=== PATIENT | male | born 1965 | race Caucasian/White ===

== ENCOUNTER → 2016-12-09 | Outpatient (CLI) | payer MEDICAID ==
[~2016-12-09] MED LIST: BACTRIM DS1 TAB PO; BAL B-501 EACH PO; BUPROPION HCL75 MG PO; CYMBALTA30 MG PO; CYMBALTA60 MG PO; FLOMAX0.4 MG PO; NEURONTIN300 MG PO; PERCOCET 5-3251 EACH PO; THERA-VITE W/ B1 TAB PO; VALIUM10 MG PO; VITAMIN D-32000 UNI1 PO; ZYPREXA5 MG PO
== END | disposition disaster alternative care site (69) ==
LOC: GRAD 15:12
DX: M54.12 Radiculopathy, cervical region (principal); M50.121 Cervical disc disorder at C4-C5 level with radiculopathy; M50.122 Cervical disc disorder at C5-C6 level with radiculopathy; M50.123 Cervical disc disorder at C6-C7 level with radiculopathy; M48.02 Spinal stenosis, cervical region; M40.40 Postural lordosis, site unspecified; M54.2 Cervicalgia

== ENCOUNTER 2016-12-22 18:56 | Emergency (ER) | payer MEDICAID ==
--- NOTE | ~2016-12-22 | ER ---
PATIENT'S NAME: DELLA JAEGER [facility] AGE: 51 Y [address] ROOM: [place] [address] LOCATION: [facility] ADMIT DATE: 12/22/2016 ER/Outpatient Report DISCHARGE DATE: 12/22/2016 FAMILY PHYSICIAN: PHYSICIAN, NO ATTENDING PHYSICIAN: Pete Kingsley Time of Arrival: 1856 hours. Time of Evaluation: 1905 hours. CHIEF COMPLAINT: Chronic pain. HISTORY OF PRESENT ILLNESS: This is a 51-year-old male, who presents to the ER, who states he has chronic pain. He states he is seeing a pain specialist in [place], but he will be out the country for the next couple of weeks. He has been seen a neurosurgeon, and he is going to have some spinal fusions done in the next couple of weeks. He states that they have been waiting him down on his medications for pain prior to his surgery. He states that he ran out of his medications yesterday. He denies any recent illness. No fever or chills. He states he has this chronic pain in his left arm, neck, and leg. He denies any new injury to the back, arm, or neck. ALLERGIES: NO KNOWN ALLERGIES. MEDICATIONS: Please see medication list in nurse's notes. PAST MEDICAL HISTORY: 1. Hepatitis C. 2. Depression. 3. Bipolar. 4. Chronic pain. PAST SURGICAL HISTORY: None. SOCIAL HISTORY: He smokes cigarettes. He has a drug abuse history 6 years ago. REVIEW OF SYSTEMS: A 10-point review of system was completed and was negative with the exception of those discussed in the HPI. PATIENT'S NAME: DELLA JAEGER [facility] AGE: 51 Y [address] ROOM: [place], [place] [address] LOCATION: [facility] ADMIT DATE: 12/22/2016 ER/Outpatient Report DISCHARGE DATE: 12/22/2016 FAMILY PHYSICIAN: PHYSICIAN, NO ATTENDING PHYSICIAN: Pete Kingsley PHYSICAL EXAMINATION: VITAL SIGNS: Height 5 feet 11 inches stated, weight 114.3 kg taken, blood pressure is 156/101, pulse 107, respirations 16, temperature 98.3 degrees tympanically, saturations 96% on room air. GENERAL: An alert, calm, well-developed male, in no acute distress. HEENT: Head: Normocephalic. He does display moist mucous membranes. LUNGS: Clear to auscultation bilaterally. No wheezes or crackles. HEART: Tachycardic, normal rhythm. EXTREMITIES: No clubbing or cyanosis. He does seem to have full range of motion of all of his limbs. NEUROLOGIC: Cranial nerves 2 through 12 grossly intact. Gait is steady without assistance. He does have good sensation bilaterally upper and lower extremities. LABORATORY DATA AND X-RAYS: None were done. IMPRESSION: Chronic pain, needing medication refill. ASSESSMENT AND PLAN: I did review the patient's medication list. The patient states that he would just like to get his oxycodone refills. I did write him for oxycodone one p.o. b.i.d., #16, with no refills. I advised them that he needs to monitor his symptoms, and he should follow up with his primary care physician for followup care. The patient understands and agrees with care. URIEL DEL CASTILLO PA-C FOR MD SILVIA STEELE/erik /[id number] d: 12/23/16 0446 t: 12/29/16 0922, OUTPATIENT REPORT
[2017-02-24] MEDS ORDERED: BUPROPION HCL75 MG PO (16:55)
[2017-02-24] MEDS ORDERED: ZYPREXA5 MG PO (16:55)
[2017-02-24] MEDS ORDERED: FLOMAX0.4 MG PO (16:56)
[2017-02-24] MEDS ORDERED: CYMBALTA30 MG PO (16:56)
[2017-02-24] MEDS ORDERED: NEURONTIN300 MG PO (16:56)
[2017-02-24] MEDS ORDERED: CYMBALTA60 MG PO (16:56)
[2017-02-24] MEDS ORDERED: PERCOCET 5-3251 EACH PO (16:57)
[2017-02-24] MEDS ORDERED: VALIUM10 MG PO (16:59)
[2017-02-24] MEDS ORDERED: VITAMIN D-32000 UNI1 PO (16:59)
[2017-02-24] MEDS ORDERED: THERA-VITE W/ B1 TAB PO (17:00)
[2017-02-24] MEDS ORDERED: BAL B-501 EACH PO (17:00)
== END 2016-12-22 19:36 | disposition disaster alternative care site (69) ==
LOC: GMED 18:56
DX: G89.29 Other chronic pain (principal); F31.9 Bipolar disorder, unspecified; F17.210 Nicotine dependence, cigarettes, uncomplicated; Z79.899 Other long term (current) drug therapy

== ENCOUNTER 2016-12-31 18:06 | Emergency (ER) | payer MEDICAID ==
--- NOTE | ~2016-12-31 | ER ---
PATIENT'S NAME: DELLA JAEGER [facility] AGE: 51 Y [address] ROOM: [place] [address] LOCATION: [facility] ADMIT DATE: 12/31/2016 ER/Outpatient Report DISCHARGE DATE: 12/31/2016 FAMILY PHYSICIAN: Physician, Unknown ATTENDING PHYSICIAN: Rachel Figueredo Time of Arrival: 1806 hours. Time of Evaluation: 1820 hours. IDENTIFICATION: A 51-year-old male. CHIEF COMPLAINT: Neck pain. HISTORY OF PRESENT ILLNESS: The patient has a history of chronic neck pain, is seeing a pain specialist in [place], but states he is out of the country. He has seen a neurosurgeon and is scheduled for spinal fusion to be done January 12. He has been waiting to get to the surgery, but has run out of his pain medication. He was here on the with the same history and received 16 oxycodone. He said he has also taken a couple from a friend. His primary care physician is Dr. Ezra Hunter at [facility]. He has not sought care there because he does not "like to go in." He is having neck pain left side radiating down his arm and some pain in his left leg. The pain is unchanged from his previous change. He has a little bit of numbness on the dorsum of his hand and the toes of his left foot and again that is not new. ALLERGIES: NO KNOWN DRUG ALLERGIES. CURRENT MEDICATIONS: He takes an antidepressant, but he does not know what the name of it is. He takes Percocet and oxycodone, the patient states he has been out of both for 3 to 4 days. MEDICAL PROBLEMS: Bipolar disorder, depression, chronic pain, and hepatitis C. SOCIAL HISTORY: The patient lives here in [place]. His primary care physician is Dr. Ezra Hunter at [facility]. He sees a pain specialist in [place] and a neurosurgeon in [place]. He is disabled. Tobacco use, he smokes 3 to 4 cigarettes per day. Alcohol use, denies. Drug use, history of drug abuse 6 years ago, but would not discuss what drugs he abused at that PATIENT'S NAME: DELLA JAEGER [facility] AGE: 51 Y [address] ROOM: [place] [address] LOCATION: [facility] ADMIT DATE: 12/31/2016 ER/Outpatient Report DISCHARGE DATE: 12/31/2016 FAMILY PHYSICIAN: Physician, Unknown ATTENDING PHYSICIAN: Rachel Figueredo. FAMILY HISTORY: No pertinent family history identified. REVIEW OF SYSTEMS: All systems reviewed and negative other than what is noted in the HPI. PHYSICAL EXAMINATION: VITAL SIGNS: Height 5 feet and 11 inches, weight 113.7 kg, blood pressure 158/108, pulse 129, respirations 20, temperature 99.6, and saturations 95% on room air. GENERAL: A 51-year-old male in mild distress. HEENT: Head: Normocephalic and atraumatic. Ears: TMs translucent both ears. Nose: Mucosa pink, no lesions. Mouth: No lesions. Pharynx benign. NECK: Supple. No lymphadenopathy. LUNGS: Clear to auscultation. HEART: Sinus tachycardia. No murmur, rub, or gallop. ABDOMEN: Bowel sounds present, soft, nondistended, and nontender. SKIN: [place], warm, and dry. No lesions or rashes noted. NEURO: No focal deficit other than he has a little bit of decreased sensation to light touch on the dorsum of his left hand and distal aspect of his left foot. He has a little weakness with hand grasp on the left hand, which he also says is not new for him. He has pain in the left side of his neck. IMPRESSION: Chronic pain. PLAN: Oxycodone 10/325 one p.o. b.i.d. p.r.n. for pain, dispensed 5 with 0 refills. I discussed with him that he will no longer get refills for his chronic pain medication through the emergency room that he will need to be get those refilled through his pain specialist or his primary care physician. The patient expresses understanding and has no further questions. RACHEL FIGUEREDO MD CAR/modl /[id number] d: 12/31/16 2315 t: 01/02/17 0334, OUTPATIENT REPORT
[2017-02-24] MEDS ORDERED: ZYPREXA5 MG PO (16:55)
[2017-02-24] MEDS ORDERED: BUPROPION HCL75 MG PO (16:55)
[2017-02-24] MEDS ORDERED: CYMBALTA60 MG PO (16:56)
[2017-02-24] MEDS ORDERED: FLOMAX0.4 MG PO (16:56)
[2017-02-24] MEDS ORDERED: NEURONTIN300 MG PO (16:56)
[2017-02-24] MEDS ORDERED: CYMBALTA30 MG PO (16:56)
[2017-02-24] MEDS ORDERED: PERCOCET 5-3251 EACH PO (16:57)
[2017-02-24] MEDS ORDERED: VALIUM10 MG PO (16:59)
[2017-02-24] MEDS ORDERED: VITAMIN D-32000 UNI1 PO (16:59)
[2017-02-24] MEDS ORDERED: BAL B-501 EACH PO (17:00)
[2017-02-24] MEDS ORDERED: THERA-VITE W/ B1 TAB PO (17:00)
== END 2016-12-31 18:46 | disposition disaster alternative care site (69) ==
LOC: GMED 18:06
DX: G89.29 Other chronic pain (principal); F32.9 Major depressive disorder, single episode, unspecified; F31.9 Bipolar disorder, unspecified; F17.210 Nicotine dependence, cigarettes, uncomplicated; B19.20 Unspecified viral hepatitis C without hepatic coma; Z79.899 Other long term (current) drug therapy

== ENCOUNTER 2017-01-23 14:11 | Emergency (ER) | payer MEDICAID ==
--- NOTE | ~2017-01-23 | ER ---
PATIENT'S NAME: DELLA JAEGER [facility] AGE: 51 Y [address] ROOM: [place] [address] LOCATION: [facility] ADMIT DATE: 01/23/2017 ER/Outpatient Report DISCHARGE DATE: 01/23/2017 FAMILY PHYSICIAN: Ezra Hunter MD ATTENDING PHYSICIAN: Ezra Moreno Time of Patient's Arrival: 1411 hours. Time of Patient's Evaluation: 1420 hours. CHIEF COMPLAINT: Postop pain, ran out of pain medication. HISTORY OF PRESENT ILLNESS: This is a 51-year-old male who presents to the ER with his sister, who states he had neck surgery done in [place] 11 days ago. He states that he has been on Valium and Percocet for his pain and he ran out of those medications today. They did call the clinic and they told them that they could be seen in [place]'s Emergency Room or come to the clinic tomorrow. They state that since they are here in [place], they decided to come to this emergency room. The patient denies any fever or chills. Denies any numbness or tingling into his extremities. He states that he has been placing ice to his upper back to help with some muscular spasm in his right trapezius muscle. He states that he has no other new symptoms at this time. ALLERGIES: NO KNOWN ALLERGIES. MEDICATIONS: Please see medication list in nurse's notes. PAST MEDICAL HISTORY: C4 through C7 fusion. He has chronic neck pain. History of hepatitis C. PAST SURGERIES: Neck surgery. SOCIAL HISTORY: Smokes cigarettes for the last 35 years. Denies any drug or alcohol use. REVIEW OF SYSTEMS: All systems are reviewed and are negative with the exception of those discussed in the HPI. PHYSICAL EXAMINATION: VITAL SIGNS: Height 5 feet 11 inches stated, weight 117.2 kg taken, blood PATIENT'S NAME: DELLA JAEGER [facility] AGE: 51 Y [address] ROOM: [place] [address] LOCATION: [facility] ADMIT DATE: 01/23/2017 ER/Outpatient Report DISCHARGE DATE: 01/23/2017 FAMILY PHYSICIAN: Ezra Hunter MD ATTENDING PHYSICIAN: Ezra Moreno pressure is 135/90, pulse 99, respirations 16, temperature 97.9 degrees tympanically, and saturations 96% on room air. Veronica Coma Score is 15. GENERAL: An alert, sleepy-appearing, 51-year-old, in no acute distress. HEENT: Head: Normocephalic. Eyes: Pupils are equal and reactive to light. He does display moist mucous membranes. LUNGS: Clear to auscultation bilaterally. HEART: Regular rate and rhythm. EXTREMITIES: He has good sensation and equal strength bilaterally in upper and lower extremities. It looks like he has a healed incision site to the anterior portion of his neck. His neck is in an Amery collar at this time. LABORATORY DATA AND X-RAYS: None were done. IMPRESSION: Pain control, postop neck surgery. ASSESSMENT AND PLAN: I did advise the patient I would not prescribe what he was getting from his primary care physician in [place], but I would give him a lesser dose that he can use every 4 hours. I did prescribe him some Percocet and Valium, I advised him not to take those medications at the same time. He needs to continue to ice and he needs to follow up with primary care physician tomorrow. The patient and the patient's sister understand and agree with care. URIEL DEL CASTILLO PA-C FOR DO SILVIA PHAM/jamiel /[id number] d: 01/23/172115 t: 02/02/17 0651, OUTPATIENT REPORT
[2017-02-24] MEDS ORDERED: BUPROPION HCL75 MG PO (16:55)
[2017-02-24] MEDS ORDERED: ZYPREXA5 MG PO (16:55)
[2017-02-24] MEDS ORDERED: CYMBALTA30 MG PO (16:56)
[2017-02-24] MEDS ORDERED: FLOMAX0.4 MG PO (16:56)
[2017-02-24] MEDS ORDERED: NEURONTIN300 MG PO (16:56)
[2017-02-24] MEDS ORDERED: CYMBALTA60 MG PO (16:56)
[2017-02-24] MEDS ORDERED: PERCOCET 5-3251 EACH PO (16:57)
[2017-02-24] MEDS ORDERED: VALIUM10 MG PO (16:59)
[2017-02-24] MEDS ORDERED: VITAMIN D-32000 UNI1 PO (16:59)
[2017-02-24] MEDS ORDERED: BAL B-501 EACH PO (17:00)
[2017-02-24] MEDS ORDERED: THERA-VITE W/ B1 TAB PO (17:00)
== END 2017-01-23 15:00 | disposition disaster alternative care site (69) ==
LOC: GMED 14:11
DX: Z76.0 Encounter for issue of repeat prescription (principal); F17.210 Nicotine dependence, cigarettes, uncomplicated; Z79.899 Other long term (current) drug therapy; Z86.19 Personal history of other infectious and parasitic diseases; Z98.890 Other specified postprocedural states

== ENCOUNTER 2017-02-28 07:52 | Day surgery (SDC) | payer MEDICAID ==
[~2017-02-28] VITALS: Ht 180.3 cm; Wt 115.7 kg
--- NOTE | ~2017-02-28 | OR ---
PATIENT'S NAME: DELLA JAEGER [facility] AGE: 51 Y [address] ROOM: [place] [address] LOCATION: [facility] ADMIT DATE: 02/28/2017 OR/Procedure Report DISCHARGE DATE: 02/28/2017 FAMILY PHYSICIAN: Ezra Hunter MD ATTENDING PHYSICIAN: Duc Collins SURGEON: Duc Collins MD MAINTENANCE MECHANIC TELEPHONE: DATE OF PROCEDURE: 02/28/2017 PREOPERATIVE DIAGNOSIS: Benign prostatic hypertrophy with lower urinary tract symptoms. POSTOPERATIVE DIAGNOSIS: Benign prostatic hypertrophy with lower urinary tract symptoms. PROCEDURE PERFORMED: Transurethral resection of prostate. ANESTHESIA: General. COMPLICATIONS: None. INDICATIONS FOR PROCEDURE: The patient is a 51-year-old male with prostatic enlargement and complaining of obstructive voiding symptoms in spite of Flomax. DETAILS OF PROCEDURE: After informed consent was obtained, the patient was taken to the operating room. General anesthetic was applied. He was placed in the dorsal lithotomy position. The groin area was prepped and draped in normal sterile fashion. The resectoscope sheath was introduced into the urethra and bladder without difficulty. Next, the button loop was introduced. The ureteral orifices were away from the bladder neck. Starting at the bladder neck at the floor of the prostate, I resected down to the level of the verumontanum. I then resected both lateral wall tissue and finally anterior tissue. I emptied the bladder and then continue resection with the button loop. This was continued down to crossing fibers and until the patient had excellent voiding channel. Following this, a 20-[place] Magana catheter was placed. The patient tolerated his procedure well and was transferred to the recovery room in good condition. DUC COLLINS MD KELLEY/modl PATIENT'S NAME: DELLA JAEGER [facility] AGE: 51 Y [address] ROOM: [place] [address] LOCATION: [facility] ADMIT DATE: 02/28/2017 OR/Procedure Report DISCHARGE DATE: 02/28/2017 FAMILY PHYSICIAN: Ezra Hunter MD ATTENDING PHYSICIAN: Duc Collins /[id number] d: 03/01/172199 t: 03/08/17901, OPERATIVE SUMMARY
[~2017-02-28 07:52] MED LIST changes: -BACTRIM DS1 TAB PO
[2017-02-28] MEDS ORDERED: BACTRIM DS1 TAB PO (11:43)
== END 2017-02-28 12:25 | disposition disaster alternative care site (69) ==
LOC: GSDC 07:52 → GPOC 11:00 → GSDC 12:25
PROC: 0VB08ZZ Excision of Prostate, Via Natural or Artificial Opening Endoscopic (ICD-10-PCS; principal; 2017-02-28)
DX: N40.1 Benign prostatic hyperplasia with lower urinary tract symptoms (principal); F41.9 Anxiety disorder, unspecified; F32.9 Major depressive disorder, single episode, unspecified; R73.03 Prediabetes; I10 Essential (primary) hypertension; Z79.899 Other long term (current) drug therapy; Z79.891 Long term (current) use of opiate analgesic; Z98.1 Arthrodesis status
CPT/HCPCS: J1956; J2001; J7030